=== PATIENT | male | born 1955 | race African-American/Black ===

== ENCOUNTER 2020-01-28 15:21 | Emergency (ER) | payer MEDICAID ==
[~2020-01-28] VITALS: Ht 170.2 cm; Wt 81.6 kg
[~2020-01-28 15:21] MED LIST: NORCO 5-325 TA1 EACH ORAL; PENICILLIN V P500 MG PO; PREDNISONE20 MG ORAL; ROBAXIN-750750 MG PO
--- NOTE | 2020-01-28 15:55 | NUR ---
ED Nurse Note: PT came in to ED via W/C for laceration to right eye area after a slip and fall during shower. pt denies any loss of consciousness.
[2020-01-28 15:56] VITALS: BP 130/80
--- NOTE | 2020-01-28 16:01 | NUR ---
ED Nurse Note: PT taken to have CT scan via w/c accompanied by oil refinery process technician.
--- NOTE | 2020-01-28 16:20 | NUR ---
ED Nurse Note: pt returned back from CT.
[2020-01-28] MEDS ORDERED: Fluorescein Strips RIGHT EYE ONE (16:45)
--- NOTE | 2020-01-28 16:51 | Diagnostic Imaging Report ---
Indications: Head trauma, laceration on the right eyelid Technique: Spiral images obtained through the facial bones. No IV contrast utilized. Multiplanar reconstructions were generated.Total dose length product 1366 mGycm. CTDIvol(s) 69 mGy. Dose reduction achieved using automated exposure control Comparison: none Findings: No evidence of acute fracture. No dislocation. No worrisome sinus air-fluid levels. The optic globes and retroseptal orbits are unremarkable. The mastoids are clear. There is adenoidal hypertrophy. There is a small osteoma within the right ethmoid sinuses. There is evidence of multiple prior dental extractions. No radiopaque foreign body demonstrated. Impression: No acute bony trauma Incidental findings as noted. The CT scanner at [facility] is accredited by the [employer] and the scans are performed using protocols designed to limit radiation exposure to as low as reasonably achievable to attain images of sufficient resolution adequate for diagnostic evaluation.
--- NOTE | 2020-01-28 17:04 | Diagnostic Imaging Report ---
Indications: Head trauma, pain Technique: Spiral acquisitions obtained through the brain. Angled axial and coronal 5 x 5 mm slices were reconstructed. Total dose length product 1366 mGycm. CTDI vol(s) 69 mGy. Dose reduction achieved using automated exposure control Comparison: None. Findings: No acute intracranial hemorrhage or edema. No mass effect nor midline shift. Normal perez-white differentiation. Normal size ventricles and extra axial CSF spaces. There is minimal periventricular deep white matter low-attenuation, predominantly posteriorly on the left. The calvarium is intact. The mastoids are clear. Visualized sinuses are clear. Visualized orbits are unremarkable except for minimal right periorbital soft tissue swelling. Impression: Findings as noted. Negative for acute intracranial bleed or mass effect The CT scanner at [facility] is accredited by the [employer] and the scans are performed using protocols designed to limit radiation exposure to as low as reasonably achievable to attain images of sufficient resolution adequate for diagnostic evaluation.
[2020-01-28] MEDS ORDERED: Tetracaine 0.5% Opth 4ml Soln RIGHT EYE ONE (17:15)
[2020-01-28 17:44] VITALS: BP 128/86
--- NOTE | 2020-01-28 18:03 | NUR ---
ED Nurse Note: ERPA at bedside assessing pt eye at this time.
--- NOTE | 2020-01-28 18:12 | Emergency Room Report ---
History of Present Illness General Chief Complaint: Multiple Trauma/Fall Source: Patient Present Illness HPI 64-year-old male with history of chronic low back and leg pain currently sitting in a wheelchair however is capable of walking here status post fall. Patient reports that his knee gave up on him and he landed on his face. Laceration noted right upper eyelid and eye discharge noted right eye. Patient reports that he cannot see through the left eye due to glaucoma. Patient has full vision right eye. Denies any dizziness, nausea vomiting. Reported the fall happened right before coming here. Denies taking any blood thinners. Denies any unilateral generalized weakness. Is neurovascularly intact. Denies all other injuries. Allergies: Coded Allergies: NO KNOWN DRUG ALLERGIES (Unverified Allergy, Unknown, 10/31/14) COVID-19 Screening Contact w/high risk pt: No Experienced COVID-19 symptoms?: No COVID-19 Testing performed BUSINESS SERVICES TECH: No Patient History Past Medical History: see triage record Past Surgical History: none Pertinent Family History: none Immunizations: UTD Reviewed Nursing Documentation: PMH: Agreed; PSxH: Agreed Nursing Documentation-PMH Past Medical History: No History, Except For Hx Hypertension: Yes Review of Systems All Other Systems: negative except mentioned in HPI Physical Exam Vital Signs Date Time Temp Pulse Resp B/P (MAP) Pulse Ox O2 Delivery O2 Flow Rate FiO2 01/28/20 15:49 98.8 116 18 138/77 (97) 94 Room Air Sp02 EP Interpretation: reviewed, normal General Appearance: no apparent distress, alert, GCS 15, non-toxic Head: normocephalic, atraumatic Eyes: right eye other - Corneal abrasion; bilateral eye normal inspection, bilateral eye PERRL ENT: hearing grossly normal, normal pharynx, no angioedema, normal voice Neck: full range of motion, supple/symm/no masses Respiratory: chest non-tender, lungs clear, normal breath sounds, speaking full sentences Cardiovascular #1: regular rate, rhythm, no edema Cardiovascular #2: 2+ carotid (R), 2+ carotid (L), 2+ radial (R), 2+ radial (L ), 2+ dorsalis pedis (R), 2+ dorsalis pedis (L) Gastrointestinal: normal bowel sounds, non tender, soft, non-distended, no guarding, no rebound Rectal: deferred Genitourinary: no CVA tenderness Musculoskeletal: back normal, other - Superficial laceration right upper eyelid, no bleeding noted, Neurologic: alert, motor strength/tone normal, oriented x3, sensory intact, responsive, speech normal Psychiatric: judgement/insight normal, memory normal, mood/affect normal, no suicidal/homicidal ideation Skin: laceration - Superficial nonbleeding laceration right upper eyelid Lymphatic: no adenopathy Procedures Laceration/Wound Repair Laceration/Wound Repair : Consent: Verbal Wound Location: face Wound's Depth, Shape: superficial Wound Length (cm): 1 Wound Explored: contaminated Betadine Prep?: Yes Wound Repaired With: Dermabond Layer Closure?: Yes Sterile Dressing Applied?: Yes Splint Applied?: No Sling Applied?: No Patient Tolerated: Well Complications: None Medical Decision Making PA Attestation All my diagnosis and treatment plans were reviewed ad discussed with my supervising physician Dr. Bernardo Diagnostic Impression: Primary Impression: Facial laceration Additional Impressions: Facial contusion Corneal abrasion ER Course 64-year-old male with history of chronic low back and leg pain currently sitting in a wheelchair however is capable of walking here status post fall. Patient reports that his knee gave up on him and he landed on his face. Laceration noted right upper eyelid and eye discharge noted right eye. Patient reports that he cannot see through the left eye due to glaucoma. Patient has full vision right eye. Denies any dizziness, nausea vomiting. Reported the fall happened right before coming here. Denies taking any blood thinners. Denies any unilateral generalized weakness. Is neurovascularly intact. Denies all other injuries. Ddx considered but are not limited to: cerebral hematoma, concussion, skull fracture, head contusion, corneal abrasion, conjunctivitis Vital signs: are WNL, pt. is afebrile H&PE are most consistent with: Facial contusion, facial laceration superficial, corneal abrasion Fluorescein strips and tetracaine Wood lamp were used to visualize right eye ORDERS: head CT no contrast , facial ct no contrast, ofloxacin ophthalmic, naproxen per patient request ED INTERVENTIONS: Wound clean, closure, dressing DISCHARGE: At this time pt. is stable for d/c to home. Will provide printed patient care instructions, and any necessary prescriptions. Care plan and follow up instructions have been discussed with the patient prior to discharge. Patient take medication as directed, follow primary care provider, green lumber grader if worsening symptoms return to the emergency room CT/MRI/US Diagnostic Results CT/MRI/US Diagnostic Results #1: Imaging Test Ordered: CT head no contrast Impression No intracranial bleed CT/MRI/US Diagnostic Results #2: Imaging Test Ordered: CT facial bones no contrast Impression No facial bone fracture, no bleeding Last Vital Signs Date Time Temp Pulse Resp B/P (MAP) Pulse Ox O2 Delivery O2 Flow Rate FiO2 01/28/20 17:44 98.3 100 17 128/86 97 Room Air Disposition: HOME, SELF-CARE Condition: Stable Scripts Ofloxacin (Ofloxacin) 5 Ml Drops 2 DROP OP Q6HR for 7 Days, #5 ML Prov: Doroteo Case 01/28/20 Naproxen* (NAPROXEN*) 500 Mg Tablet 500 MG ORAL TWICE A DAY, #30 TAB Prov: Doroteo Case 01/28/20 Referrals: [facility],REFERRING (PCP) Patient Instructions: Corneal Abrasion, [id number], Facial Laceration, [id number], Facial or Scalp Contusion, [id number] Additional Instructions: Take medication as directed, follow-up with your primary care provider, for subsequent return to the emergency room Doroteo Case Jan 28, 2020 18:12
[2020-01-28] MEDS ORDERED: NAPROXEN500 M2 ORAL (18:14)
[2020-01-28] MEDS ORDERED: OFLOXACIN10 ML OP (18:14)
--- NOTE | 2020-01-28 18:14 | NUR ---
ED Nurse Note: right eye/eyebrow lac was cleansed and dressed by hamper maker.
[2020-01-28 18:30] VITALS: BP 130/80
--- NOTE | 2020-01-28 18:30 | NUR ---
ER DISCHARGE NOTE: Patient is cleared to be discharged per ERMD, pt is aox4, on room air, with stable vital signs. pt was given dc and prescription instructions, pt was able to verbalize understanding, pt id band removed without complications. pt took all belongings.pt left via w/c
== END 2020-01-28 18:30 | disposition home or self-care (01) ==
LOC: EMR 16:53
DX: S01.111A Laceration without foreign body of right eyelid and periocular area, initial encounter (principal); S05.01XA Injury of conjunctiva and corneal abrasion without foreign body, right eye, initial encounter; I10 Essential (primary) hypertension; W19.XXXA Unspecified fall, initial encounter; Y92.9 Unspecified place or not applicable; Z99.3 Dependence on wheelchair
CPT/HCPCS: 12011; 70450; 70486; Z7502; 99284